=== PATIENT | male | born 1995 | race Caucasian/White ===

== ENCOUNTER 2019-08-27 10:02 | Emergency (ER) | payer BC, SELFPAY ==
[2019-08-27 10:24] VITALS: PULSE 94; RESP 18; TEMP 36.8; O2SAT 99
--- NOTE | 2019-08-27 10:26 | PC.NURSE ---
left calf wound was struck in the leg with rina wire last tetanus unknown. wound was cleaned for doctor to look at
[2019-08-27 10:30] VITALS: BP 147/77; PULSE 80; RESP 20; TEMP 36.6; O2SAT 98
[2019-08-27] MEDS: LIDO 1%/EPINEPHRINE 1:100,000 20 ML VIAL 10 ML INFILTRATE (10:49)
--- NOTE | 2019-08-27 10:53 | ED.WOUNDLAC ---
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 Here for lac repair. Doesn't recall last tetanus shot. Related Data Allergies Allergy/AdvReac Type Severity Reaction Status Date / Time No Known Allergies Allergy Verified 08/27/19 10:24 Review of Systems Review of Systems: All systems reviewed & are unremarkable except as noted in HPI and below Cardiovascular: Cardiovascular: Reports as per HPI and Reports no additional cardiovascular complaints Respiratory: Respiratory: Reports as per HPI and Reports no additional respiratory complaints Musculoskeletal: Musculoskeletal: Reports no additional musculoskeletal complaints Integumentary/Breasts: Skin/Breast: Reports system reviewed and no additional complaints, except as docu and Reports as per HPI Neurologic: Reports system reviewed and no additional complaints, except as documented Exam Const: General: no acute distress Orientation/consciousness: patient oriented x3 HENMT: Head: normal to inspection Chest: Chest palpation & inspection: normal inspection of the chest Resp: Effort & Inspection: normal respiratory effort Auscultation: clear to auscultation bilaterally Cardio: Rate: regular rate Rhythm: regular rhythm GI: Inspection: non-distended GI Palp: Yes Soft to palpation and No Tenderness to palpation present (GI) Skin: Wounds: wounds noted laceration left mid leg other (2cm in length) Neuro: General: patient oriented x3, moves all extremities and CN's II-XI intact bilaterally Extrem: General: normal to inspection Course Course Emergency Course: Lac repair and Update tetanus Vital Signs Vital signs: Vital Signs Temperature 98.3 F 08/27/19 10:24 Pulse Rate 94 08/27/19 10:24 Respiratory Rate 18 08/27/19 10:24 Pulse Oximetry 99 08/27/19 10:24 Temperature 97.9 F 08/27/19 10:30 Pulse Rate 80 08/27/19 10:30 Respiratory Rate 20 08/27/19 10:30 Blood Pressure 147/77 H 08/27/19 10:30 Pulse Oximetry 98 08/27/19 10:30 Procedures Laceration Laceration 1: Date: 08/27/19 Time: 10:57 Site: lower extremity Side (If applicable): left Size (cm): 2 Description: linear Depth: simple, single layer Local Anesthetic: lidocaine 1% and with epi Amount of anesthesia used (mL): 8 Pre-repair: irrigated ====== Skin Level ====== Skin layer closed with: nylon Size (cm): 3-0 Number of sutures: 4 Technique: simple, interrupted ====== Subcutaneous Layer ====== ====== Muscle Layer ====== ====== Tendon Layer ====== MDM - Wound/Laceration Medical Records Attestation: I reviewed the patient's medical records. Critical Care Time Critical Care Time Critical Care Time: No Discharge Plan Discharge Clinical Impression: Laceration Patient Disposition: Home, Self-Care Condition: Improved Instructions: Antibiotic Form, Laceration (ED) Prescriptions: New cephalexin [Keflex] 500 mg capsule 500 mg PO Q8H Qty: 30 RF: 0 Follow-up/Referrals: Lilia,URSZULA Santiago [Primary Care Provider] - Time of Disposition: 11:00
[2019-08-27] MEDS: TETANUS,DIPHTHERIA,AC PERTUSSIS ADULT 0.5 ML (ADACEL) IM (11:00)
[2019-08-27 11:02] VITALS: BP 138/75; PULSE 85; RESP 20; TEMP 36.6; O2SAT 99
== END 2019-08-27 11:10 | disposition home or self-care (01) ==
PROVIDERS: Emergency Provider Family Medicine; PCP Physician Assistant
DX: S81.812A Laceration without foreign body, left lower leg, initial encounter (principal); W45.8XXA Other foreign body or object entering through skin, initial encounter
CPT/HCPCS: 12001; 90471; 90715; 99283